=== PATIENT | male | born 1955 | race Caucasian/White ===

== ENCOUNTER → 2017-03-04 | Outpatient (CLI) | payer MEDICARE ==
[2017-02-23 11:00] VITALS: BP 125/80
[~2017-03-04] MED LIST: AMLO10TA2 PO; CIPR250T30 PO; FLEC100T PO; HYDR-2758 PO; LOSA100T6 PO; LOSA1TAB22 PO; METR500T PO; PENI500T PO; SERT50TA PO; SPIR25TA3 PO; ZOLP5TAB5 PO; lisinopril PO
--- NOTE | 2017-03-04 17:02 | RAD ---
MR of the left ankle Indication: Pain. Possible osteomyelitis. ORIF 32 years ago.. Technique: Standard multiplanar sequences are obtained. Findings: There are postsurgical changes of what appears to be a tibiotalar and subtalar fusion, with long metallic screws. The artifact does obscure the structures. There is a moderate effusion or fluid collection around the tibiotalar joint with a complex morphology, compatible with synovitis or septic joint. There is abnormal marrow signal within the visualized talus and adjacent calcaneus. Findings are suspicious for osteomyelitis. There is an intraosseous cyst at the distal talus. There is also some irregular signal within the distal tibia and fibula. Marrow edema signal at the medial aspect of the navicular bone with loss of T1 signal also suspicious for osteomyelitis. There is an accessory navicular bone. There is also some mild cystic change within the calcaneus. Diffuse soft tissue edema around the ankle. Mild posterior tibial and flexor tendon sheath fluid. There is anterior subluxation of the peroneal tendons, located lateral to the lateral malleolus. Mild thickening of the plantar aponeurosis compatible with mild plantar fasciitis. 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 IMPRESSION: 1. Detail is compromised by the metal artifact from the fusion screws. 2. There is a complex tibiotalar effusion, could be inflammatory synovitis or infected septic joint. 3. Heterogeneous bone marrow signal at the talus and adjacent calcaneus, and possibly the distal tibia and fibula, at least raising the question of osteomyelitis. 4. There is also a question of mild osteomyelitis or edema at the medial aspect of the navicular bone. 5. Anterior subluxation of the peroneal tendons. Electronically signed by: Suraj Herrera MD (03/04/2017 4:59 PM) [id number]
== END | disposition home or self-care (01) ==
LOC: MRI 15:15
PROVIDERS: ATTEND Orthopaedic Surgery Foot and Ankle Surgery
DX: M19.072 Primary osteoarthritis, left ankle and foot (principal); M72.2 Plantar fascial fibromatosis
CPT/HCPCS: 73721

== ENCOUNTER 2019-11-24 18:00 | Emergency (ER) | payer OTHER, MEDICAID ==
[~2019-11-24] VITALS: Ht 170.2 cm; Wt 78.0 kg
[~2019-11-24 18:00] MED LIST changes: -AMLO10TA2 PO; +AMLO10TA8 PO; -HYDR-2758 PO; +HYDR-2761 PO; +LOSA100T14 PO; -LOSA100T6 PO; -SPIR25TA3 PO; +SPIR25TA5 PO
[2019-11-24] MEDS ORDERED: ADENOSINE 6 MG/2 ML VIAL. IV ONE (18:15)
--- NOTE | 2019-11-24 18:28 | PHYS DOC ---
Past Medical History Past Medical History: Heart Disease, Hypertension, Other Additional Past Medical Histor: insomnia Past Surgical History: Other Additional Past Surgical Histo: carpel tunnel, L knee Smoking Status: Never Smoker Alcohol Use: Occasionally Drug Use: Marijuana General Adult EDM: Chief Complaint: RAPID HEART RATE HPI: HPI: Patient is a 64 year old male who presents with rapid heartbeat. Patient is a 64-year-old male who presents to the emergency room via EMS. [facility] He reports that he did not know that he that there was anything wrong with him. He stated that they told him he needed to go to the emergency room in the next thing he knows he is in the ambulance here on his way. After successful use of adenosine I was able to take a history. He reports that he has been in his usual state of good health. He states that about a week ago he started having ringing in the right ear without associated pain. This is associated with dizziness. When I describe dizziness to him he was unable to select which type of dizziness he had. And NIHSS was done upon arrival. Patient does have a history of CVA per EMS. Patient today denied any chest pain, shortness of breath, headache, abdominal pain, nausea or vomiting, diarrhea, change in smell, change in cough or change in sputum production. Patient also denies any diarrhea, melena or hematochezia. Review of Systems: Review of Systems: Constitutional: Denies fever or chills. [] Eyes: Denies change in visual acuity. [] HENT: Denies nasal congestion or sore throat. [] Respiratory: Denies cough or shortness of breath. [] Cardiovascular: Denies chest pain or edema. [] GI: Denies abdominal pain, nausea, vomiting, bloody stools or diarrhea. [] : Denies dysuria. [] Musculoskeletal: Denies back pain or joint pain. [] Integument: Denies rash. [] Neurologic: See HPI. [] Endocrine: Denies polyuria or polydipsia. [] Lymphatic: Denies swollen glands. [] Psychiatric: Denies depression or anxiety. [] Heart Score: Risk Factors: Risk Factors: DM, Current or recent (<one month) smoker, HTN, HLP, family history of CAD, obesity. Risk Scores: Score 0 - 3: 2.5% MACE over next 6 weeks - Discharge Home Score 4 - 6: 20.3% MACE over next 6 weeks - Admit for Clinical Observation Score 7 - 10: 72.7% MACE over next 6 weeks - Early Invasive Strategies Allergies: Allergies: Allergies Coded Allergies Type Severity Reaction Last Updated Verified codeine Allergy Intermediate RASH 01/25/14 Yes Physical Exam: PE: Constitutional: Well developed, well nourished, no acute distress, non-toxic appearance. [] HENT: Normocephalic, atraumatic, bilateral external ears normal, EACs bilat erally occluded with cerumen, oropharynx moist, no oral exudates, nose normal. [] Eyes: PERRLA, EOMI, conjunctiva normal, no discharge. [] Neck: Normal range of motion, no tenderness, supple, no stridor. [] Cardiovascular: Tachycardic, regular, no murmurs [] Lungs & Thorax: Bilateral breath sounds clear to auscultation [] Abdomen: Bowel sounds normal, soft, no tenderness, no masses, no pulsatile oneil s. [] Skin: Warm, dry, erythema and hyperkeratosis of the face and neck and scalp consistent with seborrheic keratitis. [] Back: No tenderness, no CVA tenderness. [] Extremities: No tenderness, no cyanosis, no clubbing, ROM intact, trace edema, nonpalpable distal pulses. [] Neurologic: Alert and oriented X 3, normal motor function, normal sensory function, no focal deficits noted. [] EKG: EKG: November 24, 2019 at 1807. ECGheart rate 178 bpm, supraventricular tachycardia, leftward axis, abnormal intervals, abnormal ECG November 24, 2019 at 1830. ECGheart rate 78 bpm, sinus rhythm, leftward axis, normal intervals, borderline ECG [] Radiology/Procedures: Radiology/Procedures: [] Course & Med Decision Making: Course & Med Decision Making Pertinent Labs and Imaging studies reviewed. (See chart for details) 2031-cerumen disimpaction was performed using a 18-gauge IV catheter and [id number] hydrogen peroxide and tap water that was warm. This was instilled into the left and right ear resulting in disimpaction of the cerumen. Patient tolerated the procedure well. No evidence of any trauma to the tympanic membrane was identified after inspection. 2034-patient was seen and reevaluated. Patient remains asymptomatic and that he is not having any chest pain, shortness of breath or any other complaints. He has remained in sinus rhythm since the administration of IV adenosine. His work-up is been negative for any exigent medical or surgical problem. I discuss ed with him reasons to return, treatment plan and need for follow-up. [] Dragon Disclaimer: Dragon Disclaimer: This electronic medical record was generated, in whole or in part, using a voice recognition dictation system. Departure Departure Impression: Primary Impression: SVT (supraventricular tachycardia) Additional Impressions: Peripheral vertigo of both ears Impacted cerumen of both ears Disposition: 03 TRANSFER SNF Condition: IMPROVED Referrals: CHARLES CLAROS MD (PCP) JUSTINO CALDERON MD SVT- CONVERTED WITH ONE DOSE OF ADENOSINE Patient Instructions: Cerumen Impaction, Supraventricular Tachycardia, Vertigo Justicifation of Admission Dx: Justifications for Admission: Justification of Admission Dx: N/A NIHSS Stroke Scale NIH Stroke Scale: NIH Stroke Scale Response (Comments) Value Level of Consciousness: 0 Alert/Responsive 0 LOC Questions: 0 Answers both correctly 0 LOC Commands: 0 Performs both tasks 0 Best Gaze: 0 Normal 0 Visual: 0 No visual loss 0 Facial Palsy: 0 Normal, symmetrical 0 Motor - Left Arm 0 No drift 0 Motor - Right Arm 0 No drift 0 Motor - Left Leg 0 No drift 0 Motor: Right Leg 0 No drift 0 Limb Ataxia: 1 One limb 1 Sensory: 0 No loss 0 Best Language: 0 Normal 0 Dysathria: 1 Mild to moderate 1 Extinction and Inattention: 0 Normal 0 Total 2 Critical Care Note Total Time (mins): 25 Comments Critical care was charged secondary to impending collapse of the cardiovascular system and electrical conduction system of the heart Critical Care Time Critical care time was 25 minutes exclusive of procedures. ALLYSSA GOLDEN MD Nov 24, 2019 18:28
--- NOTE | 2019-11-24 18:58 | RAD ---
PORTABLE CHEST 1V History: Reason: tACHYCARDIA / Spl. Instructions: / History: Comparison: October 26, 2011 Findings: No consolidation or pleural effusion. Normal heart size. No pneumothorax. External monitoring specialist device noted. Impression: 1. No acute cardiopulmonary process. Electronically signed by: Vimal Paul DO (11/24/2019 6:55 PM) [facility]
[2019-11-24 19:31] LABS: BASO # 0.1 x10^3/uL (0.0-0.2); BASO % 1 % (0-3); EOS # 0.2 x10^3/uL (0.0-0.7); EOS % 2 % (0-3); HEMATOCRIT 41.8 % (39.0-53.0); HEMOGLOBIN 14.7 g/dL (13.0-17.5); LYMPH # 2.5 x10^3/uL (1.0-4.8); LYMPH % 25 % (24-48); MEAN CORPUSCULAR HEMOGLOBIN 32 pg (25-35); MEAN CORPUSCULAR HGB CONC 35 g/dL (31-37); MEAN CORPUSCULAR VOLUME 92 fL (79-100); MONO # 0.9 x10^3/uL (0.0-1.1); MONO % 9 % (0-9); NEUT # 6.5 x10^3/uL (1.8-7.7); NEUT % 63 % (31-73); PLATELET COUNT 631 x10^3/uL (140-400); RED BLOOD COUNT 4.55 x10^6/uL (4.30-5.70); WHITE BLOOD COUNT 10.3 x10^3/uL (4.0-11.0)
[2019-11-24 19:42] LABS: CALCIUM 8.5 mg/dL (8.5-10.1); CREATININE 0.8 mg/dL (0.7-1.3); POTASSIUM 3.7 mmol/L (3.5-5.1)
[2019-11-24 19:48] LABS: ALBUMIN 3.6 g/dL (3.4-5.0); ALBUMIN/GLOBULIN RATIO 0.9 (1.0-1.7); TOTAL BILIRUBIN 0.4 mg/dL (0.2-1.0); TOTAL PROTEIN 7.4 g/dL (6.4-8.2)
[2019-11-24 20:08] LABS: BILIRUBIN,URINE NEGATIVE (NEG); CLARITY,URINE CLEAR; COLOR,URINE YELLOW; NITRITE,URINE NEGATIVE (NEG); PROTEIN,URINE 30 mg/dL (NEG-TRACE); UROBILINOGEN,URINE 0.2 mg/dL (0.2 mg/dL)
[2019-11-24 20:14] LABS: HYALINE CASTS, URINE FEW /HPF
[2019-11-24 20:15] LABS: BACTERIA,URINE 0 /HPF (0-FEW); RBC,URINE RARE /HPF (0-2)
[2019-11-24 20:16] LABS: WBC,URINE RARE /HPF (0-4)
[2019-11-24 21:56] VITALS: BP 126/85
--- NOTE | 2019-11-26 08:05 | EKG ---
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
--- NOTE | 2019-11-26 08:06 | EKG ---
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
== END 2019-11-24 22:18 | disposition home or self-care (01) ==
LOC: ER 18:00
DX: I47.1 Supraventricular tachycardia (principal); H81.393 Other peripheral vertigo, bilateral; H61.23 Impacted cerumen, bilateral; I11.9 Hypertensive heart disease without heart failure; Z88.5 Allergy status to narcotic agent
CPT/HCPCS: 36415; 69210; 71045; 80053; 81001; 84443; 85025; 93005; 99285; J0153

== ENCOUNTER → 2020-07-21 | Outpatient (CLI) | payer OTHER, MEDICAID ==
[2020-06-26 10:00] VITALS: BP 132/80
[~2020-07-21] MED LIST changes: +ACET325T21 PO; +AMLO-187 PO; -AMLO10TA8 PO; +BISA10SU50 RC; +COLL226C TP; +DOCU-153 PO; +INSU100V35 SQ; +LISI30TA4 PO; +MELA5TAB11 SL; +MELA5TAB20 PO; +METF500T16 PO; +SENN1TAB37 PO; +SIMV20TA18 PO; +WARF6TAB47 PO
[2020-07-21 11:46] LABS: PROTHROMBIN TIME PATIENT 34.8 SEC (11.7-14.0)
[2020-07-21 12:01] LABS: BILIRUBIN,URINE NEGATIVE (NEG); CLARITY,URINE CLEAR; COLOR,URINE YELLOW; NITRITE,URINE NEGATIVE (NEG); PH,URINE 7.5 (<5.0-8.0); PROTEIN,URINE NEGATIVE (NEG-TRACE); UROBILINOGEN,URINE 0.2 mg/dL (0.2 mg/dL)
[2020-07-21 12:13] LABS: BACTERIA,URINE FEW /HPF (0-FEW)
== END ==
LOC: SPEC 11:17
PROVIDERS: ATTEND Internal Medicine
DX: I48.0 Paroxysmal atrial fibrillation (principal)
CPT/HCPCS: 36415; 81001; 85610

== ENCOUNTER → 2020-07-22 | Outpatient (CLI) | payer OTHER, MEDICAID ==
[2020-06-26 10:00] VITALS: BP 132/80
[2020-07-22 10:42] LABS: PROTHROMBIN TIME PATIENT 32.5 SEC (11.7-14.0)
== END ==
LOC: SPEC 10:12
PROVIDERS: ATTEND Internal Medicine
DX: I48.0 Paroxysmal atrial fibrillation (principal); Z79.01 Long term (current) use of anticoagulants
CPT/HCPCS: 36415; 85610

== ENCOUNTER → 2020-07-25 | Outpatient (CLI) | payer OTHER, MEDICAID ==
[2020-06-26 10:00] VITALS: BP 132/80
[2020-07-25 10:50] LABS: PROTHROMBIN TIME PATIENT 22.8 SEC (11.7-14.0)
== END ==
LOC: SPEC 10:21
PROVIDERS: ATTEND Internal Medicine
DX: I48.0 Paroxysmal atrial fibrillation (principal); Z79.01 Long term (current) use of anticoagulants
CPT/HCPCS: 36415; 85610

== ENCOUNTER → 2020-07-28 | Outpatient (CLI) | payer OTHER, MEDICAID ==
[2020-06-26 10:00] VITALS: BP 132/80
[2020-07-28 13:14] LABS: PROTHROMBIN TIME PATIENT 18.3 SEC (11.7-14.0)
== END ==
LOC: SPEC 12:12
PROVIDERS: ATTEND Internal Medicine
DX: I48.0 Paroxysmal atrial fibrillation (principal)
CPT/HCPCS: 36415; 85610

== ENCOUNTER → 2020-07-31 | Outpatient (CLI) | payer OTHER, MEDICAID ==
[2020-06-26 10:00] VITALS: BP 132/80
[2020-07-31 11:26] LABS: PROTHROMBIN TIME PATIENT 18.9 SEC (11.7-14.0)
== END ==
LOC: SPEC 09:56
PROVIDERS: ATTEND Internal Medicine
DX: Z79.01 Long term (current) use of anticoagulants (principal)
CPT/HCPCS: 36415; 85610

== ENCOUNTER → 2020-08-04 | Outpatient (CLI) | payer OTHER, MEDICAID ==
[2020-06-26 10:00] VITALS: BP 132/80
[2020-08-04 12:36] LABS: PROTHROMBIN TIME PATIENT 24.1 SEC (11.7-14.0)
== END ==
LOC: SPEC 10:41
PROVIDERS: ATTEND Internal Medicine
DX: I48.0 Paroxysmal atrial fibrillation (principal)
CPT/HCPCS: 36415; 85610

== ENCOUNTER → 2020-08-08 | Outpatient (CLI) | payer OTHER, MEDICAID ==
[2020-06-26 10:00] VITALS: BP 132/80
== END ==
LOC: SPEC 13:01
PROVIDERS: ATTEND Internal Medicine
DX: I48.0 Paroxysmal atrial fibrillation (principal)
CPT/HCPCS: 36415; 85610

== ENCOUNTER → 2020-08-11 | Outpatient (CLI) | payer OTHER, MEDICAID ==
[2020-06-26 10:00] VITALS: BP 132/80
[2020-08-11 10:53] LABS: PROTHROMBIN TIME PATIENT 29.1 SEC (11.7-14.0)
== END ==
LOC: SPEC 07:56
PROVIDERS: ATTEND Internal Medicine
DX: I48.0 Paroxysmal atrial fibrillation (principal)
CPT/HCPCS: 36415; 85610

== ENCOUNTER → 2020-08-16 | Outpatient (CLI) | payer OTHER, MEDICAID ==
[2020-06-26 10:00] VITALS: BP 132/80
[2020-08-16 12:05] LABS: BILIRUBIN,URINE NEGATIVE (NEG); CLARITY,URINE CLEAR; COLOR,URINE YELLOW; NITRITE,URINE NEGATIVE (NEG); PH,URINE 6.5 (<5.0-8.0); PROTEIN,URINE NEGATIVE (NEG-TRACE); UROBILINOGEN,URINE 0.2 mg/dL (0.2 mg/dL)
[2020-08-16 12:21] LABS: BACTERIA,URINE 0 /HPF (0-FEW); WBC,URINE 0 /HPF (0-4)
== END ==
LOC: SPEC 11:52
PROVIDERS: ATTEND Internal Medicine
DX: R41.82 Altered mental status, unspecified (principal)
CPT/HCPCS: 81001

== ENCOUNTER → 2020-08-18 | Outpatient (CLI) | payer OTHER, MEDICAID ==
[2020-06-26 10:00] VITALS: BP 132/80
[2020-08-18 11:27] LABS: PROTHROMBIN TIME PATIENT 31.7 SEC (11.7-14.0)
== END ==
LOC: SPEC 08:50
PROVIDERS: ATTEND Internal Medicine
DX: I48.0 Paroxysmal atrial fibrillation (principal)
CPT/HCPCS: 36415; 85610

== ENCOUNTER → 2020-08-21 | Outpatient (CLI) | payer OTHER, MEDICAID ==
[2020-06-26 10:00] VITALS: BP 132/80
[2020-08-21 11:28] LABS: PROTHROMBIN TIME PATIENT 26.1 SEC (11.7-14.0)
== END ==
LOC: SPEC 07:33
PROVIDERS: ATTEND Internal Medicine
DX: I48.0 Paroxysmal atrial fibrillation (principal)
CPT/HCPCS: 36415; 85610

== ENCOUNTER → 2020-08-25 | Outpatient (CLI) | payer OTHER, MEDICAID ==
[2020-06-26 10:00] VITALS: BP 132/80
[2020-08-25 12:02] LABS: PROTHROMBIN TIME PATIENT 23.6 SEC (11.7-14.0)
== END ==
LOC: SPEC 10:05
PROVIDERS: ATTEND Internal Medicine
DX: I48.0 Paroxysmal atrial fibrillation (principal)
CPT/HCPCS: 36415; 85610

== ENCOUNTER → 2020-08-28 | Outpatient (CLI) | payer OTHER, MEDICAID ==
[2020-06-26 10:00] VITALS: BP 132/80
[2020-08-28 09:46] LABS: PROTHROMBIN TIME PATIENT 26.5 SEC (11.7-14.0)
== END ==
LOC: SPEC 08:30
PROVIDERS: ATTEND Internal Medicine
DX: Z79.01 Long term (current) use of anticoagulants (principal)
CPT/HCPCS: 36415; 85610

== ENCOUNTER → 2020-09-01 | Outpatient (CLI) | payer OTHER, MEDICAID ==
[2020-06-26 10:00] VITALS: BP 132/80
[2020-09-01 10:19] LABS: PROTHROMBIN TIME PATIENT 25.9 SEC (11.7-14.0)
== END ==
LOC: SPEC 08:25
PROVIDERS: ATTEND Internal Medicine
DX: Z79.01 Long term (current) use of anticoagulants (principal)
CPT/HCPCS: 36415; 85610

== ENCOUNTER → 2020-09-04 | Outpatient (CLI) | payer OTHER, MEDICAID ==
[2020-06-26 10:00] VITALS: BP 132/80
== END ==
LOC: SPEC 09:28
PROVIDERS: ATTEND Internal Medicine
DX: I48.0 Paroxysmal atrial fibrillation (principal)
CPT/HCPCS: 36415; 85610

== ENCOUNTER → 2020-09-08 | Outpatient (CLI) | payer OTHER, MEDICAID ==
[2020-06-26 10:00] VITALS: BP 132/80
[2020-09-08 11:36] LABS: PROTHROMBIN TIME PATIENT 20.8 SEC (11.7-14.0)
== END ==
LOC: SPEC 09:54
PROVIDERS: ATTEND Internal Medicine
DX: Z79.01 Long term (current) use of anticoagulants (principal)
CPT/HCPCS: 36415; 85610

== ENCOUNTER → 2020-09-11 | Outpatient (CLI) | payer OTHER, MEDICAID ==
[2020-06-26 10:00] VITALS: BP 132/80
[2020-09-11 10:40] LABS: PROTHROMBIN TIME PATIENT 22.2 SEC (11.7-14.0)
== END ==
LOC: SPEC 08:45
PROVIDERS: ATTEND Internal Medicine
DX: Z79.01 Long term (current) use of anticoagulants (principal)
CPT/HCPCS: 36415; 85610

== ENCOUNTER → 2020-09-16 | Outpatient (CLI) | payer OTHER, MEDICAID ==
[2020-06-26 10:00] VITALS: BP 132/80
[2020-09-16 12:52] LABS: PROTHROMBIN TIME PATIENT 25.7 SEC (11.7-14.0)
== END ==
LOC: SPEC 12:07
PROVIDERS: ATTEND Internal Medicine
DX: I48.0 Paroxysmal atrial fibrillation (principal)
CPT/HCPCS: 36415; 85610

== ENCOUNTER → 2020-09-18 | Outpatient (CLI) | payer OTHER, MEDICAID ==
[2020-06-26 10:00] VITALS: BP 132/80
[2020-09-18 07:23] LABS: PROTHROMBIN TIME PATIENT 26.1 SEC (11.7-14.0)
== END ==
LOC: SPEC 03:47
PROVIDERS: ATTEND Internal Medicine
DX: I48.0 Paroxysmal atrial fibrillation (principal)
CPT/HCPCS: 36415; 85610

== ENCOUNTER → 2020-09-22 | Outpatient (CLI) | payer OTHER, MEDICAID ==
[2020-06-26 10:00] VITALS: BP 132/80
[2020-09-22 10:25] LABS: PROTHROMBIN TIME PATIENT 24.7 SEC (11.7-14.0)
== END ==
LOC: SPEC 08:35
PROVIDERS: ATTEND Internal Medicine
DX: Z79.01 Long term (current) use of anticoagulants (principal)
CPT/HCPCS: 36415; 85610

== ENCOUNTER → 2020-09-25 | Outpatient (CLI) | payer OTHER, MEDICAID ==
[2020-06-26 10:00] VITALS: BP 132/80
[2020-09-25 10:35] LABS: PROTHROMBIN TIME PATIENT 25.9 SEC (11.7-14.0)
== END ==
LOC: SPEC 09:06
PROVIDERS: ATTEND Internal Medicine
DX: Z79.01 Long term (current) use of anticoagulants (principal)
CPT/HCPCS: 36415; 85610

== ENCOUNTER → 2020-09-29 | Outpatient (CLI) | payer OTHER, MEDICAID ==
[2020-06-26 10:00] VITALS: BP 132/80
[2020-09-29 08:44] LABS: PROTHROMBIN TIME PATIENT 23.8 SEC (11.7-14.0)
== END ==
LOC: SPEC 02:39
PROVIDERS: ATTEND Internal Medicine
DX: I48.0 Paroxysmal atrial fibrillation (principal)
CPT/HCPCS: 36415; 85610

== ENCOUNTER 2020-10-02 18:13 | Emergency (ER) | payer OTHER, MEDICAID ==
[~2020-10-02] VITALS: Ht 170.2 cm; Wt 88.0 kg
--- NOTE | 2020-10-02 18:48 | PHYS DOC ---
Past Medical History Past Medical History: CVA, Diabetes-Type II, High Cholesterol, Heart Disease, Hypertension, Other Additional Past Medical Histor: insomnia, HEMIPLEGIA/HEMIPARESIS L SIDE, DYSPHAGIA Past Surgical History: Other Additional Past Surgical Histo: carpel tunnel, L knee Smoking Status: Current Every Day Smoker Alcohol Use: Occasionally Drug Use: Marijuana General Adult EDM: Chief Complaint: SYNCOPE HPI: HPI: Patient is a 65 year oldfuv-svej-lsj male past medical history of CVA with left- sided residual weakness diabetes hyperlipidemia coronary artery disease and hypertension presents for evaluation after a syncopal episode. Patient is a resident of [facility]. Per EMS report patient had a syncopal episode while getting dinner. Upon EMS arrival patient was found to be in SVT with a heart rate in the 150s. EMS treatment included adenosine 6 mg. On arrival patient's heart rate 82 bpm-without any ST elevation or ST depression. Patient is alert and endorses passing out in the dining ferreira. Patient's only complaint at this time is shortness of breath which he states started when he was in the dining ferreira. Patient denies any associated cough. Review of Systems: Review of Systems: Review of systems: Constitutional symptoms- No fever, no chills. Eyes- No Discharge, No Visual Loss Respiratory symptoms- Positive shortness of breath, No wheezing, No Dyspnea on Exertion Cardiovascular Systems; No chest pain, Positive Palpitations, No syncope Gastrointestinal symptoms: NO abdominal pain, no nausea, no vomiting or diarrhea. Genitourinary symptoms: No dysuria. Musculoskeletal symptoms: No back pain No extremity pain. NEUROLOGICAL Symptoms: No headache, no generalized weakness; No focal Weakness positive syncope Heart Score: C/O Chest Pain: N/A Risk Factors: Risk Factors: DM, Current or recent (<one month) smoker, HTN, HLP, family history of CAD, obesity. Risk Scores: Score 0 - 3: 2.5% MACE over next 6 weeks - Discharge Home Score 4 - 6: 20.3% MACE over next 6 weeks - Admit for Clinical Observation Score 7 - 10: 72.7% MACE over next 6 weeks - Early Invasive Strategies Allergies: Allergies: Allergies Coded Allergies Type Severity Reaction Last Updated Verified codeine Allergy Intermediate RASH 01/25/14 Yes Physical Exam: PE: General: alert, no acute distress. Skin: warm, dry and intact. Head:: Normocephalic, atraumatic. Neck: Trachea midline. Eyes: EOMI, Normal conjunctiva, No drainage CARDIOVASCULAR: Regular rate and rhythm RESPIRATORY: No respiratory distress Back: Full range of motion. MUSCULOSKELETAL: Full range of motion of bilateral upper and lower extremities. GASTROINTESTINAL: Abdomen soft without rebound or guarding. NEUROLOGICAL: Alert and noted to person, place and time. No neurological deficits observed Psychiatric: Cooperative. Normal judgment EKG: EKG: [] Sinus Rhythm Rate [address] No ST depression No acute NM Performed at 1825 Radiology/Procedures: Radiology/Procedures: [] Impression: EXAM: CHEST 1 VIEW History: Shortness of breath COMPARISON: 06/21/2020. TECHNIQUE: Single portable radiograph of the chest FINDINGS: The cardiac silhouette is unremarkable. The lungs are clear bilaterally. The costophrenic sulci are clear and well demarcated. IMPRESSION: No radiographic evidence of an acute cardiopulmonary process. Electronically signed by: Nathan Abernathy MD (10/02/2020 7:32 PM) [id number] Course & Med Decision Making: Course & Med Decision Making Pertinent Labs and Imaging studies reviewed. (See chart for details) [] Patient was evaluated for chief complaint. Work-up consisted of laboratory analysis radiologic imaging and EKG. Results reviewed and discussed with patient. Per report patient in SVT prior to arrival. Patient was in normal sinus rhythm on arrival. Treatment included IV fluids. Patient was discharged back to his care facility. [place] Disclaimer: [place] Disclaimer: This electronic medical record was generated, in whole or in part, using a voice recognition dictation system. Departure Departure Impression: Primary Impression: SVT (supraventricular tachycardia) Disposition: 01 HOME / SELF CARE / HOMELESS Condition: STABLE Referrals: CORRINE MARTÍNEZ DO (PCP) Patient Instructions: Supraventricular Tachycardia, Syncope VILLA MC DO Oct 02, 2020 18:48
[2020-10-02 18:55] LABS: BASO # 0.1 x10^3/uL (0.0-0.2); BASO % 1 % (0-3); EOS # 0.2 x10^3/uL (0.0-0.7); EOS % 2 % (0-3); HEMATOCRIT 44.7 % (39.0-53.0); HEMOGLOBIN 15.4 g/dL (13.0-17.5); LYMPH # 1.4 x10^3/uL (1.0-4.8); LYMPH % 14 % (24-48); MEAN CORPUSCULAR HEMOGLOBIN 30 pg (25-35); MEAN CORPUSCULAR HGB CONC 34 g/dL (31-37); MEAN CORPUSCULAR VOLUME 88 fL (79-100); MONO % 10 % (0-9); NEUT # 7.4 x10^3/uL (1.8-7.7); NEUT % 74 % (31-73); PLATELET COUNT 809 x10^3/uL (140-400); RED BLOOD COUNT 5.05 x10^6/uL (4.30-5.70); RED CELL DISTRIBUTION WIDTH 14.8 % (11.5-14.5)
[2020-10-02 19:09] LABS: CALCIUM 8.7 mg/dL (8.5-10.1); CREATININE 1.1 mg/dL (0.7-1.3)
[2020-10-02 19:13] LABS: ALBUMIN 3.8 g/dL (3.4-5.0); ALBUMIN/GLOBULIN RATIO 0.9 (1.0-1.7); MAGNESIUM 1.9 mg/dL (1.8-2.4); TOTAL BILIRUBIN 0.2 mg/dL (0.2-1.0); TOTAL PROTEIN 7.9 g/dL (6.4-8.2)
--- NOTE | 2020-10-02 19:35 | RAD ---
EXAM: CHEST 1 VIEW History: Shortness of breath COMPARISON: 06/21/2020. TECHNIQUE: Single portable radiograph of the chest FINDINGS: The cardiac silhouette is unremarkable. The lungs are clear bilaterally. The costophrenic sulci are clear and well demarcated. IMPRESSION: No radiographic evidence of an acute cardiopulmonary process. Electronically signed by: Nathan Abernathy MD (10/02/2020 7:32 PM) [id number]
[2020-10-02 20:29] VITALS: BP 143/91
--- NOTE | 2020-10-03 04:58 | EKG ---
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
== END 2020-10-02 22:14 | disposition home or self-care (01) ==
LOC: ER 18:13
DX: I47.1 Supraventricular tachycardia (principal); E11.9 Type 2 diabetes mellitus without complications; E78.5 Hyperlipidemia, unspecified; E78.00 Pure hypercholesterolemia, unspecified; I11.9 Hypertensive heart disease without heart failure; F17.200 Nicotine dependence, unspecified, uncomplicated; Z86.73 Personal history of transient ischemic attack (TIA), and cerebral infarction without residual deficits; Z88.5 Allergy status to narcotic agent
CPT/HCPCS: 36415; 71045; 80053; 83735; 84484; 85025; 93005; 99285

== ENCOUNTER → 2020-10-02 | Outpatient (CLI) | payer OTHER, MEDICAID ==
[2020-06-26 10:00] VITALS: BP 132/80
[2020-10-02 10:49] LABS: PROTHROMBIN TIME PATIENT 24.7 SEC (11.7-14.0)
== END ==
LOC: SPEC 07:39 → EDSTATUS 11:41 → SPEC 11:46
PROVIDERS: ATTEND Internal Medicine
DX: Z79.01 Long term (current) use of anticoagulants (principal)
CPT/HCPCS: 36415; 85610

== ENCOUNTER → 2020-10-06 | Outpatient (CLI) | payer OTHER, MEDICAID ==
[2020-10-02 20:29] VITALS: BP 143/91
[2020-10-06 11:16] LABS: PROTHROMBIN TIME PATIENT 27.1 SEC (11.7-14.0)
== END ==
LOC: SPEC 07:27
PROVIDERS: ATTEND Internal Medicine
DX: Z79.01 Long term (current) use of anticoagulants (principal)
CPT/HCPCS: 36415; 85610

== ENCOUNTER → 2020-10-09 | Outpatient (CLI) | payer OTHER, MEDICAID ==
[2020-10-02 20:29] VITALS: BP 143/91
[2020-10-09 09:26] LABS: PROTHROMBIN TIME PATIENT 29.9 SEC (11.7-14.0)
== END ==
LOC: SPEC 01:49 → EDSTATUS 08:29 → SPEC 08:34
PROVIDERS: ATTEND Internal Medicine
DX: I10 Essential (primary) hypertension (principal); Z79.01 Long term (current) use of anticoagulants
CPT/HCPCS: 36415; 85610

== ENCOUNTER → 2020-10-13 | Outpatient (CLI) | payer OTHER, MEDICAID ==
[2020-10-02 20:29] VITALS: BP 143/91
[2020-10-13 08:28] LABS: PROTHROMBIN TIME PATIENT 26.3 SEC (11.7-14.0)
== END ==
LOC: SPEC 06:58
PROVIDERS: ATTEND Internal Medicine
DX: Z03.89 Encounter for observation for other suspected diseases and conditions ruled out (principal)
CPT/HCPCS: 36415; 85610

== ENCOUNTER → 2020-10-16 | Outpatient (CLI) | payer OTHER, MEDICAID ==
[2020-10-02 20:29] VITALS: BP 143/91
[2020-10-16 09:48] LABS: PROTHROMBIN TIME PATIENT 24.8 SEC (11.7-14.0)
== END ==
LOC: SPEC 08:10
PROVIDERS: ATTEND Internal Medicine
DX: Z51.81 Encounter for therapeutic drug level monitoring (principal); Z79.01 Long term (current) use of anticoagulants
CPT/HCPCS: 36415; 85610

== ENCOUNTER → 2020-10-20 | Outpatient (CLI) | payer OTHER, MEDICAID ==
[2020-10-02 20:29] VITALS: BP 143/91
[2020-10-20 14:48] LABS: PROTHROMBIN TIME PATIENT 21.3 SEC (11.7-14.0)
== END ==
LOC: SPEC 08:30
PROVIDERS: ATTEND Internal Medicine
DX: Z51.81 Encounter for therapeutic drug level monitoring (principal); Z79.01 Long term (current) use of anticoagulants
CPT/HCPCS: 36415; 85610

== ENCOUNTER → 2020-10-23 | Outpatient (CLI) | payer OTHER, MEDICAID ==
[2020-10-02 20:29] VITALS: BP 143/91
[~2020-10-23] MED LIST changes: +DOCU-148 PO; -DOCU-153 PO
[2020-10-23 10:47] LABS: PROTHROMBIN TIME PATIENT 20.5 SEC (11.7-14.0)
== END ==
LOC: SPEC 05:15
PROVIDERS: ATTEND Internal Medicine
DX: I48.0 Paroxysmal atrial fibrillation (principal); Z79.01 Long term (current) use of anticoagulants
CPT/HCPCS: 36415; 85610

== ENCOUNTER → 2020-10-27 | Outpatient (CLI) | payer OTHER, MEDICAID ==
[2020-10-02 20:29] VITALS: BP 143/91
[~2020-10-27] MED LIST changes: -DOCU-148 PO; +DOCU-153 PO
[2020-10-27 13:02] LABS: PROTHROMBIN TIME PATIENT 24.6 SEC (11.7-14.0)
== END ==
LOC: SPEC 07:35
PROVIDERS: ATTEND Internal Medicine
DX: Z51.81 Encounter for therapeutic drug level monitoring (principal); Z79.01 Long term (current) use of anticoagulants
CPT/HCPCS: 36415; 85610

== ENCOUNTER → 2020-11-03 | Outpatient (CLI) | payer OTHER, MEDICAID ==
[2020-11-03 11:57] LABS: PROTHROMBIN TIME PATIENT 25.5 SEC (11.7-14.0)
== END ==
LOC: SPEC 07:49
PROVIDERS: ATTEND Internal Medicine
DX: Z51.81 Encounter for therapeutic drug level monitoring (principal); Z79.01 Long term (current) use of anticoagulants
CPT/HCPCS: 36415; 85610

== ENCOUNTER → 2020-11-09 | Outpatient (CLI) | payer OTHER, MEDICAID ==
[2020-11-09 16:20] LABS: PROTHROMBIN TIME PATIENT 19.9 SEC (11.7-14.0)
[2020-11-09 16:55] LABS: BASO # 0.1 x10^3/uL (0.0-0.2); BASO % 1 % (0-3); EOS # 0.2 x10^3/uL (0.0-0.7); EOS % 2 % (0-3); HEMATOCRIT 42.5 % (39.0-53.0); HEMOGLOBIN 14.5 g/dL (13.0-17.5); LYMPH # 1.3 x10^3/uL (1.0-4.8); LYMPH % 13 % (24-48); MEAN CORPUSCULAR HEMOGLOBIN 30 pg (25-35); MEAN CORPUSCULAR HGB CONC 34 g/dL (31-37); MEAN CORPUSCULAR VOLUME 88 fL (79-100); MONO # 0.9 x10^3/uL (0.0-1.1); MONO % 9 % (0-9); NEUT # 7.8 x10^3/uL (1.8-7.7); NEUT % 75 % (31-73); PLATELET COUNT 738 x10^3/uL (140-400); RED BLOOD COUNT 4.84 x10^6/uL (4.30-5.70); RED CELL DISTRIBUTION WIDTH 14.8 % (11.5-14.5); WHITE BLOOD COUNT 10.3 x10^3/uL (4.0-11.0)
[2020-11-09 17:07] LABS: ALBUMIN 3.5 g/dL (3.4-5.0); ALBUMIN/GLOBULIN RATIO 0.7 (1.0-1.7); CALCIUM 8.6 mg/dL (8.5-10.1); CREATININE 1.1 mg/dL (0.7-1.3); POTASSIUM 3.7 mmol/L (3.5-5.1); TOTAL BILIRUBIN 0.3 mg/dL (0.2-1.0); TOTAL PROTEIN 8.2 g/dL (6.4-8.2)
== END ==
LOC: SPEC 14:25
PROVIDERS: ATTEND Internal Medicine
DX: I10 Essential (primary) hypertension (principal); I48.0 Paroxysmal atrial fibrillation; I69.354 Hemiplegia and hemiparesis following cerebral infarction affecting left non-dominant side
CPT/HCPCS: 36415; 80053; 85025; 85610

== ENCOUNTER → 2020-11-10 | Outpatient (CLI) | payer OTHER, MEDICAID ==
[2020-11-10 07:57] LABS: PROTHROMBIN TIME PATIENT 18.8 SEC (11.7-14.0)
== END ==
LOC: SPEC 06:21
PROVIDERS: ATTEND Internal Medicine
DX: I10 Essential (primary) hypertension (principal); I48.0 Paroxysmal atrial fibrillation; I69.354 Hemiplegia and hemiparesis following cerebral infarction affecting left non-dominant side
CPT/HCPCS: 36415; 85610

== ENCOUNTER → 2021-02-16 | Outpatient (CLI) | payer OTHER, MEDICAID ==
[~2021-02-16] MED LIST changes: +DOCU-148 PO; -DOCU-153 PO
[2021-02-16 12:27] LABS: BASO # 0.1 x10^3/uL (0.0-0.2); BASO % 1 % (0-3); EOS # 0.4 x10^3/uL (0.0-0.7); EOS % 4 % (0-3); HEMATOCRIT 50.3 % (39.0-53.0); HEMOGLOBIN 16.1 g/dL (13.0-17.5); LYMPH # 1.7 x10^3/uL (1.0-4.8); LYMPH % 15 % (24-48); MEAN CORPUSCULAR HEMOGLOBIN 28 pg (25-35); MEAN CORPUSCULAR HGB CONC 32 g/dL (31-37); MEAN CORPUSCULAR VOLUME 86 fL (79-100); MONO # 0.9 x10^3/uL (0.0-1.1); MONO % 8 % (0-9); NEUT % 72 % (31-73); PLATELET COUNT 755 x10^3/uL (140-400); RED BLOOD COUNT 5.85 x10^6/uL (4.30-5.70); RED CELL DISTRIBUTION WIDTH 16.5 % (11.5-14.5)
[2021-02-16 12:38] LABS: PROTHROMBIN TIME PATIENT 14.5 SEC (11.7-14.0)
[2021-02-16 12:39] LABS: CALCIUM 8.6 mg/dL (8.5-10.1); CREATININE 1.1 mg/dL (0.7-1.3); POTASSIUM 3.6 mmol/L (3.5-5.1)
[2021-02-16 12:59] LABS: PLT ESTIMATE INCREASED (ADEQUATE)
== END ==
LOC: SPEC 10:31
PROVIDERS: ATTEND Internal Medicine
DX: I10 Essential (primary) hypertension (principal)
CPT/HCPCS: 36415; 80048; 85025; 85610

== ENCOUNTER → 2021-04-13 | Outpatient (CLI) | payer OTHER, MEDICAID ==
[2021-04-13 14:33] LABS: BILIRUBIN,URINE NEGATIVE (NEG); CLARITY,URINE CLOUDY; COLOR,URINE RED; NITRITE,URINE NEGATIVE (NEG); PROTEIN,URINE 100 mg/dL (NEG-TRACE); UROBILINOGEN,URINE 0.2 mg/dL (0.2 mg/dL)
[2021-04-13 14:47] LABS: BACTERIA,URINE 0 /HPF (0-FEW); RBC,URINE TNTC /HPF (0-2)
== END ==
LOC: SPEC 14:07
PROVIDERS: ATTEND Internal Medicine
DX: R41.82 Altered mental status, unspecified (principal)
CPT/HCPCS: 81001; 87086

== ENCOUNTER → 2021-04-14 | Outpatient (CLI) | payer OTHER, MEDICAID ==
[2021-04-14 07:54] LABS: BASO # 0.1 x10^3/uL (0.0-0.2); BASO % 1 % (0-3); EOS # 0.2 x10^3/uL (0.0-0.7); EOS % 2 % (0-3); HEMATOCRIT 50.4 % (39.0-53.0); HEMOGLOBIN 16.3 g/dL (13.0-17.5); LYMPH # 1.3 x10^3/uL (1.0-4.8); LYMPH % 12 % (24-48); MEAN CORPUSCULAR HEMOGLOBIN 28 pg (25-35); MEAN CORPUSCULAR HGB CONC 32 g/dL (31-37); MEAN CORPUSCULAR VOLUME 85 fL (79-100); MONO # 0.8 x10^3/uL (0.0-1.1); MONO % 8 % (0-9); NEUT # 8.3 x10^3/uL (1.8-7.7); NEUT % 78 % (31-73); PLATELET COUNT 775 x10^3/uL (140-400); RED BLOOD COUNT 5.95 x10^6/uL (4.30-5.70); RED CELL DISTRIBUTION WIDTH 16.3 % (11.5-14.5); WHITE BLOOD COUNT 10.7 x10^3/uL (4.0-11.0)
[2021-04-14 08:22] LABS: ALBUMIN 3.8 g/dL (3.4-5.0); ALBUMIN/GLOBULIN RATIO 0.7 (1.0-1.7); CALCIUM 8.7 mg/dL (8.5-10.1); GFR 74.8; POTASSIUM 3.9 mmol/L (3.5-5.1); TOTAL BILIRUBIN 0.6 mg/dL (0.2-1.0); TOTAL PROTEIN 9.3 g/dL (6.4-8.2)
== END ==
LOC: SPEC 01:54
PROVIDERS: ATTEND Internal Medicine
DX: I10 Essential (primary) hypertension (principal); F03.90 Unspecified dementia, unspecified severity, without behavioral disturbance, psychotic disturbance, mood disturbance, and anxiety; I69.354 Hemiplegia and hemiparesis following cerebral infarction affecting left non-dominant side
CPT/HCPCS: 36415; 80053; 85025

== ENCOUNTER → 2021-04-14 | Outpatient (CLI) | payer OTHER, MEDICAID ==
--- NOTE | 2021-04-14 11:51 | RAD ---
EXAM: CT HEAD WITHOUT CONTRAST. HISTORY: Altered mental status. TECHNIQUE: Computed tomography of the head was performed without intravenous contrast. One or more of the following individualized dose reduction techniques were utilized for this examination: 1. Automated exposure control. 2. Adjustment of the mA and/or kV according to patient size. 3. Use of iterative reconstruction technique. COMPARISON: 06/21/2020. FINDINGS: There is no intracranial hemorrhage. A chronic infarct is noted within the distal right ant erior cerebral artery territory. There is mild chronic microangiopathic white matter change elsewhere . There is a chronic lacunar infarct in the left lolis. Prominence of the lateral ventricles and hemis pheric sulci indicates mild atrophy. The visualized paranasal sinuses appear clear. The orbits are unremarkable. The temporal bones are un remarkable. The calvarium reveals no suspicious lesions. IMPRESSION: 1. No acute intracranial findings. 2. Chronic right anterior cerebral artery infarct. Chronic left pontine lacunar infarct. Electronically signed by: Perlita Davis MD (04/14/2021 11:49 AM) [id number]
== END ==
LOC: CT 11:17
PROVIDERS: ATTEND Internal Medicine
DX: I63.521 Cerebral infarction due to unspecified occlusion or stenosis of right anterior cerebral artery (principal); R90.82 White matter disease, unspecified; R41.82 Altered mental status, unspecified
CPT/HCPCS: 70450

== ENCOUNTER → 2021-04-15 | Outpatient (CLI) | payer OTHER, MEDICAID ==
[2021-04-15 07:44] LABS: CHOLESTEROL/HDL RATIO 2.1
[2021-04-16 02:08] LABS: HEMOGLOBIN A1C 6.1 % (4.8-5.6)
== END ==
LOC: SPEC
PROVIDERS: ATTEND Internal Medicine
DX: E11.9 Type 2 diabetes mellitus without complications (principal); E78.5 Hyperlipidemia, unspecified
CPT/HCPCS: 36415; 80061; 83036